=== PATIENT | male | born 2000 | race Caucasian/White ===

== ENCOUNTER 2021-04-12 09:56 | Emergency (ER) | payer OTHER, SELFPAY ==
[2021-04-12 10:03] VITALS: BP 132/82; PULSE 72; RESP 18; TEMP 36.7; O2SAT 98; BMI 35.6
[2021-04-12 10:17] VITALS: BP 164/102; PULSE 78; RESP 18; O2SAT 99
--- NOTE | 2021-04-12 10:19 | W.ED.ABDPA2 ---
Documented by User: DAVIE Bosch 04/12/21 11:21 HPI - Abdominal Pain General: Chief Complaint: Abdominal Pain Stated Complaint: Abd Pains in lower region Time Seen by Provider: 04/12/21 09:57 Source: patient and family (mother) Mode of arrival: ambulatory Limitations: no limitations History of Present Illness: Patient is a 20-year-old male who presents to ED today along with his mother for evaluation of left lower abdominal pains. Patient tells me pain initially began 3 days ago and states he believes it began after lifting something heavy. He states pain has been fairly constant without progression of discomfort until this morning and he felt like pain was slightly worse which is what prompted his ED visit. He is not having any nausea, vomiting, changes in bowel movements. No fevers. He has not noticed any masses or bulges in his abdomen. He feels like pain is worse with walking. MD elicited complaint: abdominal pain Pertinent past history: none Onset (ago): day(s) Pain Consistency: constant Location: LLQ Quality: dull Radiation: none Migration to: no migration Exacerbating factors: movement Relieving factors: nothing Associated Symptoms: Reports no associated symptoms; Denies change in stool character, chills, constipation, diarrhea, dysuria, fever(s), hematuria, hematemesis, nausea and vomiting Review of Systems Const: Denies: fever(s), chills, body aches, fatigue or malaise Card: Denies: chest pain Resp: Denies: dyspnea GI: Reports: abdominal pain; Denies: nausea, vomiting, hematemesis, diarrhea, constipation, pain on defecation or change in stool character : Denies: flank pain, dysuria, hematuria, genital pain, testicular pain, testicular mass or scrotal swelling Musc: Denies: back pain Skin/Breast: Denies: rash Neuro: Denies: headache(s) Physical Exam Const: COMMON NORMALS: no acute distress, patient oriented x3, no limitations and alert GENERAL APPEARANCE: cooperative NUTRITIONAL APPEARANCE: overweight ORIENTATION/CONSCIOUSNESS: Yes awake, Yes oriented to person, Yes oriented to place and Yes oriented to time Chest: COMMONS NORMALS: normal inspection of the chest and normal palpation of entire chest wall Resp: COMMON NORMALS: normal respiratory effort and clear to auscultation bilaterally AUSCULTATION: clear to auscultation bilaterally Cardio: COMMON NORMALS: regular rate and regular rhythm RATE: regular rate RHYTHM: regular rhythm GI: COMMON NORMALS: Normal to inspection, nondistended, normoactive bowel sounds present, Soft to palpation, No hepatosplenomegaly present and no masses INSPECTION: Yes normal to inspection AUSCULTATION: Yes normoactive bowel sounds PALPATION: Yes Soft to palpation, Yes Tenderness to palpation present (GI) (L lower abdomen; no guarding or rigidity/no peritoneal signs), Yes No hepatosplenomegaly present and Yes Other GI palpation findings present (no masses/bulges with valsalva ) : COMMON NORMALS: Yes no CVA tenderness BLADDER/KIDNEY EXAM: Yes no CVA tenderness Back/Pelvis: COMMON NORMALS: no CVA tenderness Extremity: COMMON NORMALS: normal to inspection GENERAL: Yes normal exam except as noted Neuro: COMMON NORMALS: patient oriented x3, moves all extremities, no focal motor deficits and no sensory deficits noted SENSORIUM/ORIENTATION: Yes alert, Yes oriented to person, Yes oriented to place and Yes oriented to time Skin: COMMON NORMALS: no rashes or lesions noted GENERAL SKIN EXAM: no rashes or lesions noted Course Vital Signs: Vital signs: Vital Signs Temperature 98.1 F 04/12/21 10:03 Pulse Rate 75 04/12/21 11:17 Respiratory Rate 18 04/12/21 10:17 Blood Pressure 165/72 04/12/21 11:17 Pulse Oximetry 99 04/12/21 11:17 MDM - Abdominal Pain Medical Decision Making Patient clinically appears in no acute distress. He complains of pain to the left side of his abdomen after lifting 3 days ago. I do not appreciate any masses or bulges on his physical exam during Valsalva maneuvers. He has no guarding or rigidity to his abdomen. He is not having any GI symptoms such as vomiting, constipation, or diarrhea. Patient is passing gas. No fevers. He has no urinary complaints. Labs including CBC, CMP, and UA are normal. His vital signs are stable. At this point recommended close observation over the next 24 to 48 hours with strict return to ED precautions regarding worsening abdominal pains, vomiting, inability to pass stool or gas, fevers, dysuria or hematuria, or any other concerns they may have. Patient and mother verbalized understanding and agree with current plan. Lab Data : 04/12/21 10:29 04/12/21 10:29 Labs/Radiology: Laboratory Results WBC 7.6 10^3/uL (4.5-13.0) 04/12/21 10: RBC 4.88 10^6/uL (4.1-5.3) 04/12/21 10:29 Hgb 14.2 g/dL (11.7-16.6) 04/12/21 10:29 Hct 42.5 % (42.0-52.0) 04/12/21 10:29 MCV 87.1 fl (80-94) 04/12/21 10:29 MCH 29.1 pg (28.0-34.0) 04/12/21 10: MCHC 33.4 g/dL (30.0-36.0) 04/12/21 10: RDW 12.1 % (12.1-15.1) 04/12/21 10:29 Plt Count 304 10^3/cmm (130-400) 04/12/21 10:29 MPV 10.1 fL (7.4-10.4) 04/12/21 10:29 Neut % (Auto) 67.7 % 04/12/21 10:29 Lymph % (Auto) 23.0 % 04/12/21 10:29 Caroline % (Auto) 7.1 % 04/12/21 10:29 Eos % (Auto) 1.2 % 04/12/21 10:29 Baso % (Auto) 0.7 % 04/12/21 10:29 Neut # (Auto) 5.12 10^3/uL (1.8-8.0) 04/12/21 10:29 Lymph # (Auto) 1.7 10^3/uL (1.5-6.5) 04/12/21 10:29 Caroline # (Auto) 0.5 10^3/uL (0.2-0.9) 04/12/21 10:29 Eos # (Auto) 0.1 10^3/uL (0.0-0.8) 04/12/21 10:29 Baso # (Auto) 0.1 10^3/uL (0.0-0.1) 04/12/21 10:29 Nucleated RBC % (auto) 0 % 04/12/21 10:29 Nucleated RBCs # 0.0 /100WBC 04/12/21 10:29 Sodium 138 mmol/L (136-145) 04/12/21 10:29 Potassium 4.3 mmol/L (3.5-5.1) 04/12/21 10:29 Chloride 105 mmol/L (98-107) 04/12/21 10:29 Carbon Dioxide 23 mmol/L (22-29) 04/12/21 10:29 Anion Gap 14.3 (5-19) 04/12/21 10:29 BUN 9 mg/dL (6-20) 04/12/21 10:29 Creatinine 0.8 mg/dL (0.7-1.2) 04/12/21 10:29 GFR Calculation 124.5 mL/min (90-130) 04/12/21 10:29 Glucose 102 mg/dL (65-115) 04/12/21 10:29 Calculated Osmolality 285 mOsm/kg (285-295) 04/12/21 10:29 Calcium 8.9 mg/dL (8.5-10.5) 04/12/21 10:29 Total Bilirubin 0.2 mg/dL (0.15-1.2) 04/12/21 10:29 AST 19 U/L (0-40) 04/12/21 10:29 ALT 18 U/L (0-41) 04/12/21 10:29 Alkaline Phosphatase 92 IU/L (40-130) 04/12/21 10:29 Total Protein 8.1 g/dL (6.6-8.7) 04/12/21 10:29 Albumin 4.6 g/dL (3.5-5.2) 04/12/21 10:29 Globulin 3.5 g/dL (1.3-4.6) 04/12/21 10:29 Urine Color Yellow (Yellow) 04/12/21 10:33 Urine Appearance Clear (CLEAR) 04/12/21 10:33 Urine pH 5 (5-7) 04/12/21 10:33 Ur Specific [place] 1.020 (1.005-1.030) 04/12/21 10:33 Urine Protein Neg (Negative) 04/12/21 10:33 Urine Glucose (UA) Norm (Normal) 04/12/21 10:33 Urine Ketones Negative (Negative) 04/12/21 10:33 Urine Blood Neg (Negative) 04/12/21 10:33 Urine Nitrate Negative (Negative) 04/12/21 10:33 Urine Bilirubin Neg (Negative) 04/12/21 10:33 Urine Urobilinogen Norm mg/dL (Negative) 04/12/21 10:33 Ur Leukocyte Esterase Negative (Negative) 04/12/21 10:33 Discharge Plan Discharge Patient Disposition: Home Clinical Impression: Strain of abdominal wall Qualifiers: Encounter type: initial encounter Qualified Code(s): S39.011A - Strain of muscle, fascia and tendon of abdomen, initial encounter Condition: Stable Prescriptions: No Action No Known Home Medications 0RF Discharge Orders: Discharge ED (Routine); Ordered 04/12/21 Ordered By: Melissa Crook Referrals: Fritz Mohan MD [Family Provider] - Activity Restrictions/Additional Instructions: As we discussed please continue to monitor patient closely over the next 24 to 48 hours. Patient needs to return to the emergency department for worsening or severe abdominal pains, episodes of vomiting or diarrhea, fevers greater than 100.4, painful or bloody urine or generally feeling unwell. Coding Level of Care Code ED Smoking Pipe Coater for Chg Fwd Exam Comprehensive Documented by User: Tom Edwards DO 04/12/21 12:08 HPI - Abdominal Pain General: Chief Complaint: Abdominal Pain Stated Complaint: Abd Pains in lower region Time Seen by Provider: 04/12/21 09:57 Course Vital Signs: Vital signs: Vital Signs Temperature 98.1 F 04/12/21 10:03 Pulse Rate 75 04/12/21 11:17 Respiratory Rate 18 04/12/21 10:17 Blood Pressure 165/72 04/12/21 11:17 Pulse Oximetry 99 04/12/21 11:17 MDM - Abdominal Pain Medical Decision Making Patient clinically appears in no acute distress. He complains of pain to the left side of his abdomen after lifting 3 days ago. I do not appreciate any masses or bulges on his physical exam during Valsalva maneuvers. He has no guarding or rigidity to his abdomen. He is not having any GI symptoms such as vomiting, constipation, or diarrhea. Patient is passing gas. No fevers. He has no urinary complaints. Labs including CBC, CMP, and UA are normal. His vital signs are stable. At this point recommended close observation over the next 24 to 48 hours with strict return to ED precautions regarding worsening abdominal pains, vomiting, inability to pass stool or gas, fevers, dysuria or hematuria, or any other concerns they may have. Patient and mother verbalized understanding and agree with current plan. Chart reviewed and patient discussed with midlevel. Agree with assessment and plan. Lab Data : 04/12/21 10:29 04/12/21 10:29 Labs/Radiology: Laboratory Results WBC 7.6 10^3/uL (4.5-13.0) 04/12/21 10:29 RBC 4.88 10^6/uL (4.1-5.3) 04/12/21 10:29 Hgb 14.2 g/dL (11.7-16.6) 04/12/21 10:29 Hct 42.5 % (42.0-52.0) 04/12/21 10:29 MCV 87.1 fl (80-94) 04/12/21 10:29 MCH 29.1 pg (28.0-34.0) 04/12/21 10:29 MCHC 33.4 g/dL (30.0-36.0) 04/12/21 10:29 RDW 12.1 % (12.1-15.1) 04/12/21 10:29 Plt Count 304 10^3/cmm (130-400) 04/12/21 10:29 MPV 10.1 fL (7.4-10.4) 04/12/21 10:29 Neut % (Auto) 67.7 % 04/12/21 10:29 Lymph % (Auto) 23.0 % 04/12/21 10:29 Caroline % (Auto) 7.1 % 04/12/21 10:29 Eos % (Auto) 1.2 % 04/12/21 10:29 Baso % (Auto) 0.7 % 04/12/21 10:29 Neut # (Auto) 5.12 10^3/uL (1.8-8.0) 04/12/21 10:29 Lymph # (Auto) 1.7 10^3/uL (1.5-6.5) 04/12/21 10:29 Caroline # (Auto) 0.5 10^3/uL (0.2-0.9) 04/12/21 10:29 Eos # (Auto) 0.1 10^3/uL (0.0-0.8) 04/12/21 10:29 Baso # (Auto) 0.1 10^3/uL (0.0-0.1) 04/12/21 10:29 Nucleated RBC % (auto) 0 % 04/12/21 10: Nucleated RBCs # 0.0 /100WBC 04/12/21 10:29 Sodium 138 mmol/L (136-145) 04/12/21 10:29 Potassium 4.3 mmol/L (3.5-5.1) 04/12/21 10:29 Chloride 105 mmol/L (98-107) 04/12/21 10: Carbon Dioxide 23 mmol/L (22-29) 04/12/21 10:29 Anion Gap 14.3 (5-19) 04/12/21 10:29 BUN 9 mg/dL (6-20) 04/12/21 10: Creatinine 0.8 mg/dL (0.7-1.2) 04/12/21 10: GFR Calculation 124.5 mL/min (90-130) 04/12/21 10:29 Glucose 102 mg/dL (65-115) 04/12/21 10: Calculated Osmolality 285 mOsm/kg (285-295) 04/12/21 10:29 Calcium 8.9 mg/dL (8.5-10.5) 04/12/21 10:29 Total Bilirubin 0.2 mg/dL (0.15-1.2) 04/12/21 10:29 AST 19 U/L (0-40) 04/12/21 10: ALT 18 U/L (0-41) 04/12/21 10:29 Alkaline Phosphatase 92 IU/L (40-130) 04/12/21 10:29 Total Protein 8.1 g/dL (6.6-8.7) 04/12/21 10: Albumin 4.6 g/dL (3.5-5.2) 04/12/21 10:29 Globulin 3.5 g/dL (1.3-4.6) 04/12/21 10:29 Urine Color Yellow (Yellow) 04/12/21 10:33 Urine Appearance Clear (CLEAR) 04/12/21 10:33 Urine pH 5 (5-7) 04/12/21 10:33 Ur Specific [place] 1.020 (1.005-1.030) 04/12/21 10:33 Urine Protein Neg (Negative) 04/12/21 10:33 Urine Glucose (UA) Norm (Normal) 04/12/21 10:33 Urine Ketones Negative (Negative) 04/12/21 10:33 Urine Blood Neg (Negative) 04/12/21 10:33 Urine Nitrate Negative (Negative) 04/12/21 10:33 Urine Bilirubin Neg (Negative) 04/12/21 10:33 Urine Urobilinogen Norm mg/dL (Negative) 04/12/21 10:33 Ur Leukocyte Esterase Negative (Negative) 04/12/21 10:33 Discharge Plan Discharge Patient Disposition: Home Clinical Impression: Strain of abdominal wall Qualifiers: Encounter type: initial encounter Qualified Code(s): S39.011A - Strain of muscle, fascia and tendon of abdomen, initial encounter Condition: Stable Prescriptions: No Action No Known Home Medications 0RF Discharge Orders: Discharge ED (Routine); Ordered 04/12/21 Ordered By: Melissa Crook Referrals: Fritz Mohan MD [Family Provider] - Activity Restrictions/Additional Instructions: As we discussed please continue to monitor patient closely over the next 24 to 48 hours. Patient needs to return to the emergency department for worsening or severe abdominal pains, episodes of vomiting or diarrhea, fevers greater than 100.4, painful or bloody urine or generally feeling unwell. Coding Level of Care Code ED Smoking Pipe Coater for Terry Fwrajiv Exam Comprehensive
[2021-04-12 10:34] LABS: Basophils # 0.1 10^3/uL (0.0-0.1); Basophils % 0.7 %; Eosinophils # 0.1 10^3/uL (0.0-0.8); Eosinophils % 1.2 %; Hematocrit 42.5 % (42.0-52.0); Hemoglobin 14.2 g/dL (11.7-16.6); Lymphocytes # 1.7 10^3/uL (1.5-6.5); Mean Corpuscular HGB Conc 33.4 g/dL (30.0-36.0); Mean Corpuscular Hemoglobin 29.1 pg (28.0-34.0); Mean Corpuscular Volume 87.1 fl (80-94); Mean Platelet Volume 10.1 fL (7.4-10.4); Monocytes # 0.5 10^3/uL (0.2-0.9); Monocytes % 7.1 %; Neutrophils # 5.12 10^3/uL (1.8-8.0); Neutrophils % 67.7 %; Nucleated Red Blood Cells % 0 %; Platelet Count 304 10^3/cmm (130-400); Red Blood Count 4.88 10^6/uL (4.1-5.3); Red Cell Distribution Width 12.1 % (12.1-15.1); White Blood Count 7.6 10^3/uL (4.5-13.0)
[2021-04-12 10:39] LABS: Add Urine Microscopic? NO; Charge for UA Resulting for Rev
[2021-04-12 10:48] LABS: Bilirubin Urine Neg (Negative); Blood Urine Neg (Negative); Glucose Urine UA Norm (Normal); Ketones Urine Negative (Negative); Leukocyte Esterase Urine Negative (Negative); Nitrate Urine Negative (Negative); Protein Urine Neg (Negative); Urine Appearance Clear (CLEAR); Urine Color Yellow (Yellow); Urobilinogen Urine Norm (Negative); pH Urine 5 (5-7)
[2021-04-12 10:52] LABS: Alanine Aminotransferase 18 U/L (0-41); Albumin Level 4.6 g/dL (3.5-5.2); Alkaline Phosphatase 92 IU/L (40-130); Anion Gap 14.3 (5-19); Aspartate Amino Transferase 19 U/L (0-40); Blood Urea Nitrogen 9 mg/dL (6-20); Calcium 8.9 mg/dL (8.5-10.5); Carbon Dioxide 23 mmol/L (22-29); Chloride 105 mmol/L (98-107); Globulin 3.5 g/dL (1.3-4.6); Glomerular Filtration Rate 124.5 mL/min (90-130); Glucose 102 mg/dL (65-115); Osmolality Calculated 285 mOsm/kg (285-295); Potassium 4.3 mmol/L (3.5-5.1); Sodium 138 mmol/L (136-145); Total Bilirubin 0.2 mg/dL (0.15-1.2); Total Protein 8.1 g/dL (6.6-8.7)
[2021-04-12 11:17] VITALS: BP 165/72; PULSE 75; O2SAT 99
== END 2021-04-12 11:17 | disposition home or self-care (01) ==
PROVIDERS: Emergency Provider Physician Assistant; Family Provider Family Medicine
DX: S39.011A Strain of muscle, fascia and tendon of abdomen, initial encounter (principal); X50.0XXA Overexertion from strenuous movement or load, initial encounter
CPT/HCPCS: 80053; 81003; 85025; 99283

== ENCOUNTER 2023-05-18 13:06 | Emergency (ER) | payer OTHER, SELFPAY ==
[2023-05-18 13:10] VITALS: BP 144/81; PULSE 74; RESP 17; TEMP 36.7; O2SAT 100; BMI 28.0
--- NOTE | 2023-05-18 13:10 | XR_ITS ---
WS: [id number] PORTABLE CHEST HISTORY: sob COMPARISON: None available. There is a soft tissue mass measuring 2.7 x 2.0 cm in the LEFT perihilar region. There may be an add itional nodule posterior to the heart. No pneumonia. No pleural effusion or pneumothorax. Cardiac size: Normal. Mediastinum/Aorta: Normal mediastinum. No osseous abnormality seen. IMPRESSION: 1. LEFT perihilar mass and possible retrocardiac mass. Recommend follow-up chest CT with IV contrast . Pneumonia not excluded. 2. No pneumothorax.
--- NOTE | 2023-05-18 13:10 | ECG_ITS ---
[facility] Test Date: 2023-05-18 Pat Name: Da Burris Department: Room: Gender: Male Nps: : 2000 Requested By: Krish Lora Order Number: [id number] Gladys MD: Siddhartha George M.D. Measurements Intervals Notrees Rate: 59 P: 63 NC: 173 QRS: 59 QRSD: 102 T: 49 QT: 414 QTc: 412 Interpretive Statements SINUS BRADYCARDIA No previous ECG available for comparison Electronically Signed On 05-18-2023 15:37:18 CDT by Siddhartha George M.D. [email or web address]
--- NOTE | 2023-05-18 14:37 | PC.PHAR ---
pt states takes no prescription medications on aspirin prn teeth pain
--- NOTE | 2023-05-18 15:01 | CT_ITS ---
WS: [id number] CT chest w con* [id number] HISTORY: abnormal CXR TECHNIQUE: Axial imaging performed through the thorax. Coronal and sagittal reformats are submitted. All CT scans at [facility] use at least one of these dose optimization techniques: automated exposure control; mA and/or kV adjustment per patient size (includes targeted exams where dose is mat ched to clinical indication); or iterative reconstruction. CONTRAST: Omnipaque 350; 100 mL IV. DLP: 499.91 mGy.cm COMPARISON: None available. Lungs and central airway: Lungs are well aerated. No pneumonia. Pleura: Normal. No pleural effusion. Heart and pericardium: Normal size heart with no pericardial effusion. Mediastinum and nasir: LEFT hilar mass contains calcification. Mass with calcification measures 3.4 x 2.2 cm. This is very coarse irregular calcification centrally adjacent to the proximal LEFT lower lob e pulmonary artery. There is an additional soft tissue mass with calcification in the subcarinal loca tion measuring 4.6 x 2.9 cm. Anterior mediastinal lymph nodes. This is not a typical configuration fo r residual thymic tissue. This small collection measures 2.0 x 1.4 cm. Vessels: Normal size aortic and pulmonary artery. No coronary artery calcifications. Chest wall and lower neck: Bilateral gynecomastia. Upper abdomen: Prior cholecystectomy. Osseous structures: No destructive process. IMPRESSION: 1. LEFT hilar and subcarinal lymphadenopathy with coarse calcifications. This is an unusual presenta tion. This may be related to healing histoplasmosis. Granulomatous disease should be considered. Ct gnant adenopathy should also be included in the differential. 2. Gynecomastia. Notified DAVIE Bosch at 05/18/2023 3:40 PM.
--- NOTE | 2023-05-18 15:01 | ED_ITS ---
HPI - Nausea/Vomiting/Diarrhea 2 General: Chief complaint: Nausea/Vomiting/Diarrhea Stated complaint: sob Time Seen by Provider: 05/18/23 14:33 Source: patient and family Mode of arrival: ambulatory Limitations: no limitations History of Present Illness: Patient is a 22-year-old male presents to ED today along with his significant other for complaints of nausea and vomiting. Patient states he was drinking yesterday evening and woke up this morning with nausea, vomiting, diarrhea, and intermittent abdominal cramping. He arrives with stable vital signs. States he feels a little shaky. He has not noticed any blood in his emesis or stools. No fevers. MD elicited complaint: nausea, vomiting, diarrhea and abdominal pain Pertinent past history: other (Alcohol intake yesterday evening) Onset (ago): hour(s) Description of diarrhea: watery Associated nausea: Yes Associated abdominal pain: Yes Location of pain: Diffuse Radiation: diffuse Pain consistency: intermittent Severity: mild Quality: cramping Exacerbating factors: eating Relieving factors: none Associated symtoms: Reports nausea; Denies chest pain, dizziness, dysuria, fatigue, headache(s) or malaise Review of Systems 2 Const: Denies: fever(s), chills, body aches, fatigue or malaise Card: Denies: chest pain Resp: Denies: dyspnea GI: Reports: abdominal pain, nausea and vomiting; Denies: hematemesis or diarrhea : Denies: flank pain, difficulty urinating, dysuria, urinary frequency, urinary urgency or urinary hesitancy Musc: Denies: neck pain, back pain, extremity pain or joint pain Skin/Breast: Denies: rash Neuro: Denies: headache(s), numbness in extremities, weakness in extremities, sensory changes or dizziness Physical Exam 2 Const: COMMON NORMALS: no acute distress, average body habitus, patient oriented x3, no limitations, healthy appearing, alert and well nourished G ENERAL APPEARANCE: cooperative Resp: COMMON NORMALS: normal respiratory effort and clear to auscultation bilaterally AUSCULTATION: clear to auscultation bilaterally Cardio: COMMON NORMALS: regular rate and regular rhythm RATE: regular rate RHYTHM: regular rhythm GI: COMMON NORMALS: Normal to inspection, nondistended, normoactive bowel sounds present, Soft to palpation, non-tender, No hepatosplenomegaly present and no masses PALPATION: Yes Soft to palpation and Yes No hepatosplenomegaly present : COMMON NORMALS: Yes no CVA tenderness BLADDER/KIDNEY EXAM: Yes no CVA tenderness Back/Pelvis: COMMON NORMALS: no CVA tenderness Neuro: COMMON NORMALS: patient oriented x3 SENSORIUM/ORIENTATION: Yes alert Course 2 Vital Signs: Vital signs: Vital Signs Temperature 98.0 F 05/18/23 13:10 Pulse Rate 63 05/18/23 16:00 Respiratory Rate 16 05/18/23 16:00 Blood Pressure 113/63 05/18/23 16:00 Pulse Oximetry 98 05/18/23 16:00 Oxygen Delivery Me thod Room Air 05/18/23 16:00 MDM - Nausea/Vomiting/Diarrhea Medical Decision Making Patient appears in no acute distress. His vital signs are stable. Abdomen is nonsurgical. He feels better after medications given here. Blood work overall is unremarkable. CXR had originally been ordered in triage and was abnormal showing a perihilar and retrocardiac mass. CT chest was recommended. CT of his chest results are as follows: 1. LEFT hilar and subcarinal lymphadenopathy with coarse calcifications. This is an unusual presentation. This may be related to healing histoplasmosis. Granulomatous disease should be considered. Malignant adenopathy should also be included in the differential. Patient has no clinical history of being around bird/bat fecal matter or other risk factors for histoplasmosis. I spoke to Dr. Mchugh who read the CT scan who recommended follow-up with pulmonology so this referral was placed. Ultimately these were incidental findings and not related to his initial complaint/presentation. Medical Records I reviewed the patient's medical records. Lab Data I reviewed the patient's lab results. 05/18/23 15:10 05/18/23 15:10 Laboratory Results WBC 9.54 10^3/uL (3.29-11.43) 05/18/23 15:10 RBC 4.63 10^6/uL (3.85-5.65) 05/18/23 15:10 Hgb 13.90 g/dL (11.27-16.99) 05/18/23 15:10 Hct 40.6 % (37-53) 05/18/23 15:10 MCV 87.7 fl (82-101) 05/18/23 15:10 MCH 30.0 pg (27-33) 05/18/23 15:10 MCHC 34.2 g/dL (30-55) 05/18/23 15:10 RDW 12.6 % (12.1-15.1) 05/18/23 15:10 Plt Count 298 10^3/cmm (157-399) 05/18/23 15:10 MPV 10.5 fL (7.4-10.4) H 05/18/23 15:10 Neut % (Auto) 85.0 % 05/18/23 15:10 Lymph % (Auto) 10.8 % 05/18/23 15:10 [place] % (Auto) 3.7 % 05/18/23 15:10 Eos % (Auto) 0.0 % 05/18/23 15:10 Baso % (Auto) 0.3 % 05/18/23 15:10 Neut # (Auto) 8.11 10^3/uL (1.8-7.7) H 05/18/23 15:10 Lymph # (Auto) 1.0 10^3/uL (0.8-4.8) 05/18/23 15:10 [place] # (Auto) 0.4 10^3/uL (0.2-0.9) 05/18/23 15:10 Eos # (Auto) 0.0 10^3/uL (0.0-0.8) 05/18/23 15:10 Baso # (Auto) 0.0 10^3/uL (0.0-0.1) 05/18/23 15:10 Nucleated RBC % (auto) 0 % 05/18/23 15:10 Nucleated RBCs # 0.0 /100WBC 05/18/23 15:10 Sodium 138 mmol/L (136-145) 05/18/23 15:10 Potassium 4.3 mmol/L (3.5-5.1) 05/18/23 15:10 Chloride 103 mmol/L (98-107) 05/18/23 15:10 Carbon Dioxide 24 mmol/L (22-29) 05/18/23 15:10 Anion Gap 15.3 (5-19) 05/18/23 15:10 BUN 18 mg/dL (6-20) 05/18/23 15:10 Creatinine 0.7 mg/dL (0.7-1.2) 05/18/23 15:10 GFR Calculation 142.4 mL/min (90-130) H 05/18/23 15:10 Glucose 102 mg/dL (65-115) 05/18/23 15:10 Calculated Osmolality 288 mOsm/kg (285-295) 05/18/23 15:10 Calcium 10.0 mg/dL (8.5-10.5) 05/18/23 15:10 Total Bilirubin 0.5 mg/dL (0.15-1.2) 05/18/23 15:10 AST 17 U/L (0-40) 05/18/23 15:10 ALT 12 U/L (0-41) 05/18/23 15:10 Alkaline Phosphatase 79 U/L (40-130) 05/18/23 15:10 Total Protein 8.4 g/dL (6.6-8.7) 05/18/23 15:10 Albumin 4.6 g/dL (3.5-5.2) 05/18/23 15:10 Globulin 3.8 g/dL (1.3-4.6) 05/18/23 15:10 Lipase 55 U/L (13-60) 05/18/23 15:10 All radiology interpretation(s) finalized by discharge Discharge Plan Discharge Patient Disposition: Home Clinical Impression: Abnormal chest CT Nausea & vomiting Qualifiers: Vomiting type: unspecified Qualified Code(s): R11.2 - Nausea with vomiting, unspecified Condition: Stable Prescriptions: New ondansetron 4 mg tablet,disintegrating 4 mg PO Q8H PRN (Reason: nausea and vomiting) Qty: 14 0RF No Action aspirin 325 mg Tablet 325 mg PO DAILY PRN (Reason: teeth pain) Discharge Orders: Discharge ED (Routine); Ordered 05/18/23 Ordered By: Melissa Crook Activity Restrictions/Additional Instructions: As we discussed case management should reach out to you to set you up with your follow-up appointment with pulmonology due to the abnormal findings on your CT scan. Coding Level of Care Code ED Professor Of Music for Terry Reynolds
[2023-05-18] MEDS: LORazepam 2 mg/mL INJ 10 mL MDV 1 MG IVP (15:15)
[2023-05-18] MEDS: ondansetron 2 mg/ML SDV 2 mL 4 MG IVP (15:15)
[2023-05-18] MEDS: sodium chloride 0.9% 1,000 ML 999 ML IV (15:26)
[2023-05-18 15:27] LABS: Basophils % 0.3 %; Hematocrit 40.6 % (37-53); Lymphocytes % 10.8 %; Mean Corpuscular HGB Conc 34.2 g/dL (30-55); Mean Corpuscular Volume 87.7 fl (82-101); Mean Platelet Volume 10.5 fL (7.4-10.4); Monocytes # 0.4 10^3/uL (0.2-0.9); Monocytes % 3.7 %; Neutrophils # 8.11 10^3/uL (1.8-7.7); Nucleated Red Blood Cells % 0 %; Platelet Count 298 10^3/cmm (157-399); Red Blood Count 4.63 10^6/uL (3.85-5.65); Red Cell Distribution Width 12.6 % (12.1-15.1); White Blood Count 9.54 10^3/uL (3.29-11.43)
[2023-05-18 15:39] VITALS: BP 120/66; PULSE 61; RESP 16; O2SAT 98
[2023-05-18 15:43] LABS: Alanine Aminotransferase 12 U/L (0-41); Albumin Level 4.6 g/dL (3.5-5.2); Alkaline Phosphatase 79 U/L (40-130); Anion Gap 15.3 (5-19); Aspartate Amino Transferase 17 U/L (0-40); Blood Urea Nitrogen 18 mg/dL (6-20); Carbon Dioxide 24 mmol/L (22-29); Chloride 103 mmol/L (98-107); Creatinine Clr Calc Pharmacy 210.2683; Globulin 3.8 g/dL (1.3-4.6); Glomerular Filtration Rate 142.4 mL/min (90-130); Glucose 102 mg/dL (65-115); Lipase 55 U/L (13-60); Osmolality Calculated 288 mOsm/kg (285-295); Potassium 4.3 mmol/L (3.5-5.1); Sodium 138 mmol/L (136-145); Total Bilirubin 0.5 mg/dL (0.15-1.2); Total Protein 8.4 g/dL (6.6-8.7)
[2023-05-18 16:00] VITALS: BP 113/63; PULSE 63; RESP 16; O2SAT 98
--- NOTE | 2023-05-19 15:15 | PC.SOCIAL ---
Pulmonology Referral Referral sent to pulmonology clinic at this time. Clinic to contact patient with appt date and time.
== END 2023-05-18 16:33 | disposition home or self-care (01) ==
PROVIDERS: Emergency Provider Physician Assistant
DX: R11.2 Nausea with vomiting, unspecified (principal); R91.8 Other nonspecific abnormal finding of lung field
CPT/HCPCS: 36415; 71045; 71260; 80053; 83690; 85025; 93005; 96361; 96374; 96375; 99285; J2060; J2405; J7030

== ENCOUNTER 2024-03-01 18:50 | Emergency (ER) | payer OTHER, SELFPAY ==
[2024-03-01 19:25] VITALS: BP 140/75; PULSE 70; RESP 14; TEMP 36.8; O2SAT 100; BMI 28.5
--- NOTE | 2024-03-01 19:39 | XRR_ITS ---
PROCEDURE INFORMATION: Exam: XR Chest Exam date and time: 03/01/2024 7:42 PM Age: 23 years old Clinical indication: Cough and shortness of breath; Additional info: Cough, SOB TECHNIQUE: Imaging protocol: Radiologic exam of the chest. Views: 1 view. COMPARISON: CT chest w con* [id number] 05/18/2023 3:21 PM FINDINGS: Lungs: There is no consolidation. There is a 3.7 cm left hilar mass. Pleural spaces: There is no pleural effusion or pneumothorax. Heart/Mediastinum: Heart size is normal. Bones/joints: Bones are unremarkable. XR/XR chest 1V portable [id number] IMPRESSION: 1. No acute findings. 2. Left hilar mass corresponds to enlarged calcified lymph node on prior chest CT and is similar to the finding on the prior radiograph.
--- NOTE | 2024-03-01 19:48 | ED_ITS ---
HPI - URI/Sore Throat 2 General: Chief Complaint: Upper Respiratory Infection Stated Complaint: congestion Time Seen by Provider: 03/01/24 19:01 Source: patient Mode of arrival: ambulatory Limitations: no limitations History of Present Illness: Patient is a 23-year-old male presents the emergency department complaining of upper respiratory symptoms for the past week. States he was seen at [facility], was prescribed sinus medication and has been taking this as prescribed along with Advil. States he has developed headache, continued productive cough, shortness of breath, back pain, vomiting, diffuse bodyaches, chills, and fevers. States his girlfriend has been sick as well. He reports being swabbed at [facility] for strep and flu, these were both negative. At this time his vitals are unremarkable, afebrile and 100% SpO2 on room air. Last took Advil 4 hours ago. He denies any difficulty walking, focal neurological deficits, severe neck pain, or other symptoms at this time. MD elicited complaint: fever Onset (ago): week(s) (1) Consistency: constant Severity: moderate Able to tolerate fluids by mouth: Yes Context: sick contacts Associated symptoms: Reports chills, fever(s), headache(s) and vomiting; Deny abdominal pain, chest pain, diarrhea, ear or mastoid pain or nausea Treatments prior to arrival: cold medicine and other (Advil) Related Data Home Medications Medication Instructions Recorded Confirmed aspirin 325 mg tablet 325 mg PO DAILY PRN teeth pain 05/18/23 05/18/23 Previous Rx's Medication Instructions Recorded ondansetron 4 mg disintegrating 4 mg PO Q8H PRN nausea and 05/18/23 tablet vomiting #14 tabs Allergies Allergy/AdvReac Type Severity Reaction Status Date / Time No Known Allergies Allergy Verified 03/01/24 19:29 Review of Systems 2 General: Reports: 10 or more systems reviewed and unremarkable except in HPI and below Const: Reports: fever(s), chills and body aches; Denies: fatigue Eyes: Denies: change in vision ENMT: Denies: throat pain, ear or mastoid pain or nasal discharge Card: Denies: chest pain, palpitations, swelling of feet/ankles or lightheadedness Resp: Reports: dyspnea and productive cough; Denies: wheezing GI: Reports: vomiting; Denies: abdominal pain, nausea, diarrhea or constipation : Denies: flank pain, difficulty urinating, dysuria or urinary frequency Musc: Reports: back pain; Denies: neck pain or joint pain Skin/Breast: Denies: rash Neuro: Reports: headache(s); Denies: numbness in extremities or weakness in extremities Physical Exam 2 Const: COMMON NORMALS: no acute distress, patient oriented x3 and no limitations GENERAL APPEARANCE: cooperative, comfortable and well developed ORIENTATION/CONSCIOUSNESS: Yes awake, Yes oriented to person, Yes oriented to place and Yes oriented to time HENMT: COMMON NORMALS: normocephalic, atraumatic, hearing grossly normal bilaterally, moist oral mucous membranes and oropharynx normal HEAD & SCALP: normocephalic and atraumatic Eye: COMMON NORMALS: Equal, round and reactive pupils present, EOMs intact bilaterally and conjunctivae normal CONJUNCTIVA: Yes conjunctivae normal P UPIL: Yes Equal, round and reactive pupils present Neck/C-Spine: COMMON NORMALS: full ROM, supple and no JVD Resp: COMMON NORMALS: normal respiratory effort, No retractions, No use of accessory muscles and clear to auscultation bilaterally AUSCULTATION: clear to auscultation bilaterally Cardio: COMMON NORMALS: no JVD, regular rate, regular rhythm, No clicks present (Cardio), No murmurs present (Cardio) and No rub (Cardio) RATE: r egular rate RHYTHM: regular rhythm GI: COMMON NORMALS: Normal to inspection, nondistended, normoactive bowel sounds present, Soft to palpation and non-tender AUSCULTATION: Yes normoactive bowel sounds PALPATION: Yes Soft to palpation RECTAL EXAM: Yes deferred Extremity: COMMON NORMALS: normal to inspection, full ROM and capillary refill normal Neuro: COMMON NORMALS: patient oriented x3, moves all extremities, no focal motor deficits and no sensory deficits noted SENSORIUM/ORIENTATION: Yes oriented to person, Yes oriented to place and Yes oriented to time Psych: COMMON NORMALS: mental status grossly normal and Normal thought process present THOUGHT PROCESS: Normal thought process present Skin: COMMON NORMALS: no rashes or lesions noted GENERAL SKIN EXAM: no rashes or lesions noted Course 2 Vital Signs: Vital signs: Vital Signs Temperature 98.3 F 03/01/24 19:25 Pulse Rate 54 L 03/01/24 20:30 Respiratory Rate 18 03/01/24 20:06 Blood Pressure 128/77 03/01/24 20:30 Pulse Oximetry 98 03/01/24 20:30 Oxygen Delivery Me thod Room Air 03/01/24 20:30 MDM - URI/Sore Throat Medical Decision Making Patient reporting a week of upper respiratory symptoms. Vitals have been stable throughout ED course, afebrile with normal respirations and SpO2. His lab work showed normal white count, normal metabolic panel. X-ray did not demonstrate any focal/acute consolidation or signs of respiratory disease. He notes feeling better after simply sleep and Tylenol here in the emergency department. I have very low suspicion for meningitis, however encouraged him to return if he starts having neck pain, persistent fevers, difficulty walking, or general worsening of his condition. He agrees with this plan, he will follow-up with his primary care within the next 48 hours. Respiratory panel pending. Lab Data 03/01/24 19:54 03/01/24 19:54 Radiology Impressions Chest X-Ray 03/01/24 19:39 IMPRESSION: 1. No acute findings. 2. Left hilar mass corresponds to enlarged calcified lymph node on prior chest CT and is similar to the finding on the prior radiograph. Laboratory Results WBC 9.14 10^3/uL (3.29-11.43) 03/01/24 19:54 RBC 4.22 10^6/uL (3.85-5.65) 03/01/24 19:54 Hgb 12.60 g/dL (11.27-16.99) 03/01/24 19:54 Hct 37.6 % (37-53) 03/01/24 19:54 MCV 89.1 fl (82-101) 03/01/24 19:54 MCH 29.9 pg (27-33) 03/01/24 19:54 MCHC 33.5 g/dL (30-55) 03/01/24 19:54 RDW 12.2 % (12.1-15.1) 03/01/24 19:54 Plt Count 314 10^3/cmm (157-399) 03/01/24 19:54 MPV 9.5 fL (7.4-10.4) 03/01/24 19:54 Neut % (Auto) 77.5 % 03/01/24 19:54 Lymph % (Auto) 11.1 % 03/01/24 19:54 Sevier % (Auto) 10.5 % 03/01/24 19:54 Eos % (Auto) 0.4 % 03/01/24 19:54 Baso % (Auto) 0.3 % 03/01/24 19:54 Neut # (Auto) 7.08 10^3/uL (1.8-7.7) 03/01/24 19:54 Lymph # (Auto) 1.0 10^3/uL (0.8-4.8) 03/01/24 19:54 Sevier # (Auto) 1.0 10^3/uL (0.2-0.9) H 03/01/24 19:54 Eos # (Auto) 0.0 10^3/uL (0.0-0.8) 03/01/24 19:54 Baso # (Auto) 0.0 10^3/uL (0.0-0.1) 03/01/24 19:54 Nucleated RBC % (auto) 0 % 03/01/24 19:54 Nucleated RBCs # 0.0 /100WBC 03/01/24 19:54 Sodium 139 mmol/L (136-145) 03/01/24 19:54 Potassium 3.9 mmol/L (3.5-5.1) 03/01/24 19:54 Chloride 103 mmol/L (98-107) 03/01/24 19:54 Carbon Dioxide 25 mmol/L (22-29) 03/01/24 19:54 Anion Gap 14.9 (5-19) 03/01/24 19:54 BUN 10 mg/dL (6-20) 03/01/24 19:54 Creatinine 0.6 mg/dL (0.7-1.2) L 03/01/24 19:54 GFR Calculation 168.5 mL/min (90-130) H 03/01/24 19:54 Glucose 101 mg/dL (65-115) 03/01/24 19:54 Calculated Osmolality 287 mOsm/kg (285-295) 03/01/24 19:54 Calcium 9.7 mg/dL (8.5-10.5) 03/01/24 19:54 Total Bilirubin 0.3 mg/dL (0.15-1.2) 03/01/24 19:54 AST 18 U/L (0-40) 03/01/24 19:54 ALT 14 U/L (0-41) 03/01/24 19:54 Alkaline Phosphatase 82 U/L (40-130) 03/01/24 19:54 Total Protein 8.3 g/dL (6.6-8.7) 03/01/24 19:54 Albumin 4.2 g/dL (3.5-5.2) 03/01/24 19:54 Globulin 4.1 g/dL (1.3-4.6) 03/01/24 19:54 All radiology interpretation(s) finalized by discharge Discharge Plan Discharge Patient Disposition: Home Clinical Impression: Viral syndrome Condition: Stable Prescriptions: No Action aspirin 325 mg Tablet 325 mg PO DAILY PRN (Reason: teeth pain) ondansetron 4 mg tablet,disintegrating 4 mg PO Q8H PRN (Reason: nausea and vomiting) Qty: 14 0RF Discharge Orders: Discharge ED (Routine); Ordered 03/01/24 Ordered By: Sourav Benoit Patient Instructions: Viral Syndrome (ED) Activity Restrictions/Additional Instructions: Please follow-up with primary care within the next 48 hours. Continue drinking plenty of fluids. Alternate ibuprofen and Tylenol for body aches, headaches, or fevers. Please return with any neck pain, persistent fevers, or worsening of condition. 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
[2024-03-01 20:00] LABS: Basophils % 0.3 %; Eosinophils % 0.4 %; Hematocrit 37.6 % (37-53); Lymphocytes % 11.1 %; Mean Corpuscular HGB Conc 33.5 g/dL (30-55); Mean Corpuscular Hemoglobin 29.9 pg (27-33); Mean Corpuscular Volume 89.1 fl (82-101); Mean Platelet Volume 9.5 fL (7.4-10.4); Monocytes % 10.5 %; Neutrophils # 7.08 10^3/uL (1.8-7.7); Neutrophils % 77.5 %; Nucleated Red Blood Cells % 0 %; Platelet Count 314 10^3/cmm (157-399); Red Blood Count 4.22 10^6/uL (3.85-5.65); Red Cell Distribution Width 12.2 % (12.1-15.1); White Blood Count 9.14 10^3/uL (3.29-11.43)
[2024-03-01] MEDS: acetaminophen 500 mg Tablet 1000 MG PO (20:03)
[2024-03-01 20:06] VITALS: BP 137/83; PULSE 60; RESP 18; O2SAT 100
[2024-03-01 20:18] LABS: Alanine Aminotransferase 14 U/L (0-41); Albumin Level 4.2 g/dL (3.5-5.2); Alkaline Phosphatase 82 U/L (40-130); Anion Gap 14.9 (5-19); Aspartate Amino Transferase 18 U/L (0-40); Blood Urea Nitrogen 10 mg/dL (6-20); Calcium 9.7 mg/dL (8.5-10.5); Carbon Dioxide 25 mmol/L (22-29); Chloride 103 mmol/L (98-107); Creatinine Clr Calc Pharmacy 244.7386; Globulin 4.1 g/dL (1.3-4.6); Glomerular Filtration Rate 168.5 mL/min (90-130); Glucose 101 mg/dL (65-115); Osmolality Calculated 287 mOsm/kg (285-295); Potassium 3.9 mmol/L (3.5-5.1); Sodium 139 mmol/L (136-145); Total Bilirubin 0.3 mg/dL (0.15-1.2); Total Protein 8.3 g/dL (6.6-8.7)
[2024-03-01 20:30] VITALS: BP 128/77; PULSE 54; O2SAT 98
[2024-03-01 20:50] VITALS: BP 128/77; PULSE 55; O2SAT 100
[2024-03-01 21:59] LABS: Adenovirus Not Detected (NOT DETECT); Chlamydia Pneumoniae Not Detected (NOT DETECT); Coronavirus 229E,HKU1,NL63,OC4 Not Detected (NOT DETECT); Human Metapneumovirus Not Detected (NOT DETECT); Human Rhinovirus/Enterovirus Not Detected (NOT DETECT); Influenza A Not Detected (NOT DETECT); Influenza A H1 Not Detected (NOT DETECT); Influenza A H1-2009 Not Detected (NOT DETECT); Influenza A H3 Not Detected (NOT DETECT); Influenza B Not Detected (NOT DETECT); Mycoplasma Pneumoniae Not Detected (NOT DETECT); Parainfluenza Virus Type 1 Not Detected (NOT DETECT); Parainfluenza Virus Type 2 Not Detected (NOT DETECT); Parainfluenza Virus Type 3 Not Detected (NOT DETECT); Parainfluenza Virus Type 4 Not Detected (NOT DETECT); Respiratory Syncytial Virus A Not Detected (NOT DETECT); Respiratory Syncytial Virus B Not Detected (NOT DETECT)
[2024-03-01 22:10] LABS: SARS-COV-2 Detected (NOT DETECT)
--- NOTE | 2024-03-01 22:29 | PC.NURSE ---
pt contacted and informed of his positive covid results.
== END 2024-03-01 20:51 | disposition home or self-care (01) ==
PROVIDERS: Emergency Provider Physician Assistant
DX: B34.9 Viral infection, unspecified (principal)
CPT/HCPCS: 36415; 71045; 80053; 85025; 87486; 87581; 87633; 99284

== ENCOUNTER 2024-10-19 23:07 | Emergency (ER) | payer OTHER, SELFPAY ==
[2024-10-19 23:12] VITALS: BP 147/90; PULSE 81; RESP 18; TEMP 36.9; O2SAT 99; BMI 28.8
[2024-10-19 23:45] VITALS: BP 138/83; PULSE 85; O2SAT 98
--- NOTE | 2024-10-20 | ED_ITS ---
HPI - Wound/Laceration General: Chief Complaint: Wound/Laceration Stated Complaint: head lac Time Seen by Provider: 10/19/24 23:09 Source: patient Mode of arrival: ambulatory Limitations: no limitations History of Present Illness: Patient is a 24-year-old male who presents the emergency department planing of a scalp laceration that occurred while at work. This happened about an hour prior to coming in, states that he was trying rebar when it recoiled back and struck him on the head. This caused 1 inch laceration to the head with no active bleeding at this time. No loss of consciousness, no nausea or vomiting, no seizure-like activity, no difficulties walking, no other focal neurological deficit. No visual changes. States tetanus is up-to-date. He reports that this is Worker's Compensation, he needs urine drug screen and blood alcohol. Onset (ago): hour(s) Location: scalp Place: work Patient tetanus UTD: Yes Context: accidental Associated symptoms: Denies chills, fever(s), nausea or vomiting Related Data Home Medications ?Medication ?Instructions ?Recorded ?Confirmed aspirin 325 mg tablet 325 mg PO DAILY PRN teeth pa in 05/18/23 05/18/23 Previous Rx's ?Medication ?Instructions ?Recorded ondansetron 4 mg disintegrating 4 mg PO Q8H PRN nausea and 05/18/23 tablet vomiting #14 tabs Allergies Allergy/AdvReac Type Severity Reaction Status Date / Time No Known Allergies Allergy Verified 10/19/24 23:19 Review of Systems General: Reports: 10 or more systems reviewed and unremarkable except in HPI and below Const: Reports: other (head injury/2cm lac); Denies: fever(s) or chills Eyes: Denies: change in vision Card: Denies: chest pain Resp: Denies: dyspnea GI: Denies: abdominal pain, nausea, vomiting or diarrhea Musc: Denies: extremity pain or joint pain Skin/Breast: Denies: rash, skin pain, skin tenderness or new lesions Neuro: Reports: headache(s); Denies: numbness in extremities, weakness in extremities, dizziness, behavioral changes or seizure-like activity Physical Exam Const: COMMON NORMALS: no acute distress, average body habitus, patient or iented x3, no limitations, healthy appearing, alert and well nourished HENMT: HEAD & SCALP: no Quijano's sign and no raccoon eyes OTHER: 2 cm laceration to vertex of scalp with no active bleeding Neck/C-Spine: COMMON NORMALS: full ROM, no lymphadenopathy, supple and no meningeal signs Resp: COMMON NORMALS: normal respiratory effort, No use of accessory muscles and clear to auscultation bilaterally AUSCULTATION: clear to auscultation bilaterally Cardio: COMMON NORMALS: regular rate and regular rhythm RATE: regular rate RHYTHM: regular rhythm Extremity: COMMON NORMALS: full ROM and capillary refill normal Neuro: COMMON NORMALS: patient oriented x3 SENSORIUM/ORIENTATION: Yes alert MENINGEAL SIGNS: Yes no meningeal signs Skin: COMMON NORMALS: turgor normal GENERAL SKIN EXAM: turgor normal Procedures Laceration Laceration 1: Site: scalp Size (cm): 2 Description: linear Depth: simple, single layer Pre-repair: wound explored Skin layer closed with: other (fatimah) Course Vital Signs: Vital signs: Vital Signs Temperature 98.4 F 10/19/24 23:12 Pulse Rate 85 10/19/24 23:45 Respiratory Rate 18 10/19/24 23:12 Blood Pressure 138/83 10/19/24 23:45 Pulse Oximetry 98 10/19/24 23:45 Oxygen Delivery Me thod Room Air 10/19/24 23:45 MDM - Wound/Laceration Medical Decision Making Patient presented after scalp laceration while at work, this is work-related injury and urine drug screen and blood alcohol is obtained. Scalp laceration clean, or appear to require fatimah so 2 were placed. Informed of when to have these removed, how to care for the wound at home and there is no concern for any intracranial injury. Patient without discharge and general return precautions given. No radiology studies performed this visit Discharge Plan Discharge Patient Disposition: Home Clinical Impression: Work related injury, Laceration of scalp Condition: Stable Prescriptions: No Action aspirin 325 mg Tablet 325 mg PO DAILY PRN (Reason: teeth pain) ondansetron 4 mg tablet,disintegrating 4 mg PO Q8H PRN (Reason: nausea and vomiting) Qty: 14 0RF Discharge Orders: Discharge ED (Routine); Ordered 10/20/24 Ordered By: Sourav Benoit Referrals: Kumar Méndez DO [Primary Care Provider, [facility]] Patient Instructions: Patient Portal & Nora Instructions Activity Restrictions/Additional Instructions: Scalp Laceration Discharge Discharge Instructions: Scalp Laceration Treated with Fatimah (Work-Related Injury) Diagnosis and Treatment Summary: 24-year-old male presented with a work-related scalp laceration. The wound was closed with fatimah. Physical examination was unremarkable for acute intracranial injury. Staple Removal: - Fatimah should be removed in 7?10 days. This timing is supported by both neurosurgical and emergency medicine literature for scalp wounds closed with fatimah. [1] https://pubmed.ncbi.nlm.nih.gov/41722048 [2] https://pubmed.ncbi.nlm.nih.gov/4947338 - Removal may be performed in a clinic or, if appropriate education and equipment are provided, at home; home removal has been shown feasible and safe in select populations. [3] https://pubmed.ncbi.nlm.nih.gov/63363948 - Early removal (<7 days) may risk wound dehiscence; delayed removal (>10 days) may increase scarring. Wound Care: - Keep the wound clean and covered with a non-adherent dressing for the first 24?48 hours.[4] https://pubmed.ncbi.nlm.nih.gov/63535961 [5] https://pubmed.ncbi.nlm.nih.gov/52887756 [6] https://www.nejm.org/doi/full/10.1056/DLVUgf0527262 - Routine hair washing with shampoo is permitted after the first postoperative day; there is no evidence that shampooing increases infection risk.[1] https://pubmed.ncbi.nlm.nih.gov/03798169 - A moist wound environment (e.g., with petrolatum ointment or an occlusive dressing) is preferred to optimize healing and reduce infection risk.[4] https://pubmed.ncbi.nlm.nih.gov/29524506 [6] https://w ww.nejm.org/doi/full/10.1056/FFYXsb7444238 - Wound may be gently washed with tap water; tap water is as safe as sterile saline for irrigation.[4] https://pubmed.ncbi.nlm.nih.gov/18135153 [5] https://pubmed.ncbi.nlm.nih.gov/46039771 [6] https://www.nejm.org/doi/full/10.1056/TOWSdn9833500 - Avoid picking at the fatimah or scratching the area. Infection Prevention: - Prophylactic antibiotics are not indicated for simple scalp lacerations in healthy patients, per the [place] Association for the Surgery of Trauma and In fectious Disease Society of [place] guidelines. [7] https://www.ncbi.nlm.nih.gov/pmc/articles/CHD50323832/ [5] https://pubmed.ncbi.nlm.nih.gov/91363360 - Monitor for signs of infection: increasing redness, swelling, warmth, pus, or fever. If these occur, seek medical attention. Activity and Follow-Up: - Return to work is permitted as tolerated, unless otherwise restricted by occupational health or employer policy. - Avoid activities that may result in direct trauma to the scalp until fatimah are removed. - Schedule follow-up for staple removal in 7?10 days, or as directed by occupational health. Tetanus Prophylaxis: - Tetanus status should be confirmed. If the last booster was >10 years ago, tetanus toxoid should be administered.[5] https://pubmed.ncbi.nlm.nih.gov/98996633 [6] https://www.nej.org/doi/full/10.1056/UNHMdi0103954 Work-Related Injury Documentation: - This injury occurred in the workplace. Documentation should be provided to occupational health and/or workers? compensation as required. When to Seek Medical Attention: - Severe headache, vomiting, confusion, loss of consciousness, or new neurological symptoms. - Signs of wound infection (see above). - Bleeding that does not stop with gentle pressure. Additional Notes: - No evidence of acute intracranial injury on examination. - No need for routine antibiotic prophylaxis unless wound characteristics or patient comorbidities change.[7] https ://www.ncbi.nlm.nih.gov/pmc/articles/ZYZ80766108/ [5] https://pubmed.ncbi.nlm.nih.gov/30153004 References: - [place] Association for the Surgery of Trauma consensus.[7] https://www.ncbi.nlm.nih.gov/pmc/articles/GLX16167193/ - Emergency medicine and neurosurgical literature on staple removal and wound care.[3] https://pubmed.ncbi.nlm.nih.gov/51748579 [4] https://pubmed.ncbi.nlm.nih.gov/18670836 [5] https://pubmed.ncbi.nlm.nih.gov/05311156 [1] https://pubmed.ncbi.nlm.nih.gov/31647648 [2] https://pubmed.ncbi.nlm.nih.gov/7689391 [6] https://www.nej.org/doi/full/10.1056/LOYIcl3902643 References * Outpatient-Based Scalp Surgery Without Shaving and Allowing Use of Shampoo https://pubmed.ncbi.nlm.nih.gov/58977219 . Richard SC, Manda SK, Park KW, et al. World Neurosurgery. 2012;77(2):391-3. doi:10.1016/j.wneu.2010.12.052. * Comparison of Skin Stapling Devices and Standard Sutures for Pediatric Scalp Lacerations: A Randomized Study of Cost and Time Benefits https://pubmed.ncbi.nlm.nih.gov/0995258 . Kantristen JT, Lorenz CW, Redmond L, Schonfeld N. The Journal of Pediatrics. 1997;130(5):808-13. doi:10.1016/r6028-8340(57)06725-x. * Scalp Fatimah Placed in a Pediatric Emergency Department: Feasibility and Benefits of Home Removal https://pubmed.ncbi.nlm.nih.gov/36851999 . Richard BJ, Cristy A, Gordy K, et al. Pediatric Emergency Care. 202;38(3):j3609-k6322. doi:10.1097/PEC.4631026264820658. * Essentials of Skin Laceration Repair https://pubmed.ncbi.nlm.nih.gov/14598688 . Carolann ARANGO. [place] Family Physician. 2008;78(8):945-51. * Common Questions About Wound Care https://pubmed.ncbi.nlm.nih.gov/71989697 . Emili B, Ramila MQ, Javy C. [place] Family Physician. 2015;91(2):86-92. * Current Management of Acute Cutaneous Wounds https://www.nejm.org/doi/full/10.1056/CNTZvt9440769 . AJ, Rebecca AB. The [place] Journal of Medicine. 2008;359(10):1037-46. doi:10.1056/ULBEoh4027142. * Antibiotic Prophylaxis in Injury: An [place] Association for the Surgery of Trauma Critical Care Committee Clinical Consensus Document https://www.ncbi.nlm.nih.gov/pmc/articles/SVM05362468/ . Opal RD, Chuy MS, Fouzia RB, et al. Trauma Surgery & Acute Care Open. 2023;9(1):m158465. doi:10.1136/txzpu-5609-337151. 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
[2024-10-20 00:14] LABS: Alcohol Level < 10 mg/dL (0-10)
[2024-10-20 00:16] LABS: PCP Screen Urine Negative (Negative)
== END 2024-10-20 00:51 | disposition home or self-care (01) ==
PROVIDERS: Emergency Provider Physician Assistant; PCP Electrodiagnostic Medicine
DX: S01.01XA Laceration without foreign body of scalp, initial encounter (principal); Z79.82 Long term (current) use of aspirin; W20.8XXA Other cause of strike by thrown, projected or falling object, initial encounter
CPT/HCPCS: 12001; 36415; 80306; 80307; 99283